=== PATIENT | female | born 1970 | race Caucasian/White ===

== ENCOUNTER 2017-07-01 09:55 | Outpatient (REF) | payer OTHER | END 2017-07-04 | LOC: M SFHCCLAY 09:55 | DX: R19.7 Diarrhea, unspecified (principal) | CPT/HCPCS: 87507 ==

== ENCOUNTER → 2017-07-06 | Outpatient (CLI) | payer OTHER | LOC: M RAD 10:47 | DX: N28.9 Disorder of kidney and ureter, unspecified (principal) | CPT/HCPCS: 76775 ==

== ENCOUNTER 2018-03-15 00:01 | Emergency (ER) | payer OTHER ==
[2018-03-15 01:17] LABS: BEDSIDE GLUCOSE 112 MG/DL (70-105)
[2018-03-15 01:27] LABS: BASO % 0.5 % (0.0-1.0); EOS # 0.3 10^3/uL (0.0-0.50); EOS % 3.4 % (0.0-3.0); HEMATOCRIT 36.1 % (36.0-47.0); HEMOGLOBIN 10.9 g/dl (12.0-15.5); IMMATURE GRANULOCYTE % 0.3 % (0-3.0); LYMPH # 3.1 10^3/uL (1.5-4.5); LYMPH % 39.6 % (24.0-44.0); MEAN CORPUSCULAR HEMOGLOBIN 25.3 pg (27.0-33.0); MEAN CORPUSCULAR HGB CONC 30.2 g/dl (32.0-36.5); MEAN CORPUSCULAR VOLUME 83.8 fl (80.0-96.0); MONO # 0.6 10^3/uL (0.0-0.8); MONO % 7.5 % (0.0-5.0); NEUTROPHILS # 3.8 10^3/uL (1.8-7.7); NEUTROPHILS % 48.7 % (36.0-66.0); PLATELET COUNT, AUTOMATED 318 10^3/uL (150-450); RED BLOOD COUNT 4.31 10^6/uL (4.00-5.40); RED CELL DISTRIBUTION WIDTH 15.9 % (11.5-14.5); WHITE BLOOD COUNT 7.8 10^3/uL (4.0-10.0)
[2018-03-15] MEDS: NS 1,000 ML IV ×4 (01:49→21:09)
[2018-03-15 02:13] LABS: ALBUMIN 3.7 GM/DL (3.2-5.2); ALBUMIN/GLOBULIN RATIO 0.97 (1.00-1.93); ALKALINE PHOSPHATASE 61 U/L (45-117); ALT/SGPT 23 U/L (12-78); ANION GAP 10 MEQ/L (8-16); AST/SGOT 24 U/L (7-37); BILIRUBIN,DIRECT < 0.1 MG/DL (0.0-0.2); BILIRUBIN,TOTAL 0.2 MG/DL (0.2-1.0); BLOOD UREA NITROGEN 18 MG/DL (7-18); CALCIUM LEVEL 8.5 MG/DL (8.5-10.1); CARBON DIOXIDE LEVEL 27 MEQ/L (21-32); CHLORIDE LEVEL 102 MEQ/L (98-107); CPK CREATINE PHOSPHOKINASE 161 U/L (26-192); CREATININE FOR GFR 0.97 MG/DL (0.55-1.30); ETHYL ALCOHOL (ETHANOL) 0.126 % (0.000-0.010); GLOMERULAR FILTRATION RATE > 60.0 (>51); GLUCOSE, FASTING 114 MG/DL (70-100); POTASSIUM SERUM 3.9 MEQ/L (3.5-5.1); SALICYLATE LEVEL < 1.7 MG/DL (5.0-30.0); SODIUM LEVEL 139 MEQ/L (136-145); TOTAL PROTEIN 7.5 GM/DL (6.4-8.2)
[2018-03-15 02:14] LABS: ACETAMINOPHEN LEVEL < 2.0 UG/ML (10.0-30.0)
[2018-03-15] MEDS: ONDANSETRON 4MG/2ML VIAL (J2405) IV (04:15)
[2018-03-15 05:16] LABS: AMPHETAMINES LEVEL URINE NEGATIVE (NEGATIVE); BARBITURATES URINE NEGATIVE (NEGATIVE); BENZODIAZEPINES URINE NEGATIVE (NEGATIVE); CANNABINOIDS URINE NEGATIVE (NEGATIVE); COCAINE METABOLITE URINE NEGATIVE (NEGATIVE); METHADONE URINE NEGATIVE (NEGATIVE); OPIATES URINE NEGATIVE (NEGATIVE); PHENCYCLIDINE URINE NEGATIVE (NEGATIVE)
[2018-03-15] MEDS: ONDANSETRON 4 MG TAB (S0181) PO (09:31)
[2018-03-15] MEDS: ATORVASTATIN 20 MG TAB PO (09:31)
[2018-03-15] MEDS: LEVOTHYROXINE 25MCG TABLET (0.025MG) PO (09:31)
[2018-03-15] MEDS: GABAPENTIN 100 MG CAP PO (09:32)
[2018-03-15] MEDS: LISINOPRIL 20 MG TAB PO (09:32)
[2018-03-15] MEDS: FAMOTIDINE 20 MG TAB PO (09:33)
[2018-03-15] MEDS: VANCOMYCIN ORAL SOL 250MG/5ML ORAL SYRINGE PO (11:14)
[2018-03-15] MEDS: BENZONATATE 100 MG CAP PO (11:44)
[2018-03-15] MEDS: NORCO, ANEXSIA 5/325MG TABLET (HYDROcodone/ACETAMINOPHEN) PO (11:45)
[2018-03-16] MEDS: NORCO, ANEXSIA 5/325MG TABLET (HYDROcodone/ACETAMINOPHEN) PO (01:00)
[2018-03-16] MEDS: NS 1,000 ML IV ×2 (03:49→10:28)
[2018-03-16] MEDS: LEVOTHYROXINE 25MCG TABLET (0.025MG) PO (07:45)
== END 2018-03-16 13:04 | disposition home or self-care (01) ==
LOC: M ED 03-16 13:04
DX: F33.9 Major depressive disorder, recurrent, unspecified (principal); I10 Essential (primary) hypertension; J44.9 Chronic obstructive pulmonary disease, unspecified; E78.9 Disorder of lipoprotein metabolism, unspecified; E66.9 Obesity, unspecified; Z79.899 Other long term (current) drug therapy; Z79.890 Hormone replacement therapy; Z79.51 Long term (current) use of inhaled steroids; Z91.030 Bee allergy status; Z87.891 Personal history of nicotine dependence
CPT/HCPCS: J2405

== ENCOUNTER → 2018-04-10 | Outpatient (REF) | payer OTHER ==
[2018-04-10 12:28] LABS: CHOLESTEROL LEVEL 221 MG/DL (<200); HDL CHOLESTEROL 50 MG/DL (>40); LDL CHOLESTEROL 120 MG/DL (<100); NON-HDL-C 171 MG/DL; TRIGLYCERIDES LEVEL 255 MG/DL (<150)
[2018-04-10 12:29] LABS: ESTIMATED AVERAGE GLUCOSE 123 MG/DL (60-110); HEMOGLOBIN A1c 5.9 %
[2018-04-12 15:03] LABS: VITAMIN D 1,25 DIHYDROXY 45.9 pg/mL (19.9-79.3)
== END ==
LOC: M SFHCCLAY 08:31
DX: R73.01 Impaired fasting glucose (principal); E78.5 Hyperlipidemia, unspecified; E03.9 Hypothyroidism, unspecified; E55.9 Vitamin D deficiency, unspecified
CPT/HCPCS: 84443

== ENCOUNTER → 2018-04-12 | Outpatient (REF) | payer OTHER | LOC: M SFHCCLAY 04-13 11:40 | DX: A04.72 Enterocolitis due to Clostridium difficile, not specified as recurrent (principal) | CPT/HCPCS: 87507 ==

== ENCOUNTER → 2018-05-01 | Outpatient (REF) | payer OTHER ==
[2018-05-01 16:37] LABS: BASO % 0.5 % (0.0-1.0); EOS # 0.2 10^3/uL (0.0-0.50); EOS % 2.5 % (0.0-3.0); HEMOGLOBIN 10.7 g/dl (12.0-15.5); IMMATURE GRANULOCYTE % 0.3 % (0-3.0); LYMPH # 2.4 10^3/uL (1.5-4.5); LYMPH % 30.3 % (24.0-44.0); MEAN CORPUSCULAR HEMOGLOBIN 24.7 pg (27.0-33.0); MEAN CORPUSCULAR HGB CONC 28.9 g/dl (32.0-36.5); MEAN CORPUSCULAR VOLUME 85.5 fl (80.0-96.0); MONO # 0.7 10^3/uL (0.0-0.8); MONO % 8.4 % (0.0-5.0); NEUTROPHILS # 4.7 10^3/uL (1.8-7.7); PLATELET COUNT, AUTOMATED 331 10^3/uL (150-450); RED BLOOD COUNT 4.33 10^6/uL (4.00-5.40); RED CELL DISTRIBUTION WIDTH 16.4 % (11.5-14.5)
[2018-05-01 16:50] LABS: APPEARANCE, URINE CLOUDY (CLEAR); BACTERIA, URINE AUTO NEGATIVE (NEGATIVE); BILIRUBIN, URINE AUTO NEGATIVE (NEGATIVE); BLOOD, URINE BLOOD 1+ (NEGATIVE); COLOR, URINE AMBER (YELLOW); GLUCOSE, URINE (UA) AUTO NEGATIVE (NEGATIVE); KETONE, URINE AUTO NEGATIVE (NEGATIVE); LEUKOCYTE ESTERASE, URINE AUTO NEGATIVE (NEGATIVE); MUCUS, URINE SMALL (NEGATIVE); NITRITE, URINE AUTO NEGATIVE (NEGATIVE); PROTEIN, URINE AUTO 1+ mg/dL (NEGATIVE); RBC, URINE AUTO 9 /HPF (0-3); SQUAMOUS EPITHELIAL CELL UR AU 23 /HPF (0-6); WBC, URINE AUTO 2 /HPF (0-3)
[2018-05-01 16:53] LABS: ALBUMIN 3.7 GM/DL (3.2-5.2); ALBUMIN/GLOBULIN RATIO 1.16 (1.00-1.93); ALKALINE PHOSPHATASE 59 U/L (45-117); ALT/SGPT 22 U/L (12-78); ANION GAP 7 MEQ/L (8-16); AST/SGOT 21 U/L (7-37); BILIRUBIN,TOTAL 0.4 MG/DL (0.2-1.0); BLOOD UREA NITROGEN 11 MG/DL (7-18); C REACTIVE PROTEIN QUANTITATIV < 0.30 MG/DL (0.00-0.30); CALCIUM LEVEL 9.1 MG/DL (8.5-10.1); CARBON DIOXIDE LEVEL 31 MEQ/L (21-32); CHLORIDE LEVEL 104 MEQ/L (98-107); CREATININE FOR GFR 0.76 MG/DL (0.55-1.30); GLOMERULAR FILTRATION RATE > 60.0 (>51); GLUCOSE, FASTING 99 MG/DL (70-100); IMMUNOGLOBULIN G 811 MG/DL (681-1648); IMMUNOGLOBULIN M 130 MG/DL (40-230); POTASSIUM SERUM 4.1 MEQ/L (3.5-5.1); SODIUM LEVEL 142 MEQ/L (136-145); TOTAL PROTEIN 6.9 GM/DL (6.4-8.2)
[2018-05-01 17:33] LABS: HIV 1&2 SCREEN CENTAUR NEGATIVE (NEGATIVE)
== END ==
LOC: M SFHCPLAZ 12:47
DX: A04.72 Enterocolitis due to Clostridium difficile, not specified as recurrent (principal); R31.0 Gross hematuria

== ENCOUNTER 2018-06-12 11:56 | Day surgery (SDC) | payer OTHER ==
[~2018-06-12] VITALS: Ht 160 cm; Wt 140.6 kg
[~2018-06-12 11:56] MED LIST: ADV250INH INH; ALBU17IN INH; ANOR1AER PO; ASPI81TA85 PO; ATOR40TA75 PO; BENZ-18 PO; BENZ200C70 PO; BREO1INH3 IN; FECAL MICROBIOTA PREPARATION 250 ML BTL (J3590) XX ONE; GABA-1171 PO; INCR1INH INH; LEVO25TA34 PO; LIDO2SO SSP; LIDOCAINE 2% INJ 100 MG/5 ML SDV (FOR ANES.) As Ordered ONE; LISI-538 PO; LISI10TA4 PO; METH1TAB40 PO; MULTCAP PO; NICO14DI20 TD; NYST10OI TOP; ONDA4TAB5 PO; ONDA8TAB7 PO; OXYC1TAB23 PO; PRED50TA PO; PROPOFOL 200 MG/20 ML VIAL As Ordered ONE; PROZ20CA11 PO; RANI150T PO; ROBA500T PO; TRAM50TA2 PO; TRAZO50TA PO; ULTR50TA8 PO; VANC125C2 PO; VENTAER INH
--- NOTE | 2018-06-12 13:06 | ROOR ---
Patient Name: Tamiko Brown Procedure Date: 06/12/2018 12:44 PM Date of : 1970 Age: 48 Room: [facility] Gender: Female Note Status: Finalized Procedure: Total Colonoscopy to the Cecum + Fecal Microbiota Transplant (Bacteriotherapy) Indications: Colon cancer screening in patient at increased risk: Colorectal cancer in sister, Incidental - Fecal transplant for treatment of recurrent Clostridium difficile diarrhea Providers: Rashi Norton MD Referring MD: GUADALUPE DIANA DO Requesting Provider: Medicines: Monitored Anesthesia Care Complications: No immediate complications. Procedure: Pre-Anesthesia Assessment: - The heart rate, respiratory rate, oxygen saturations, blood pressure, adequacy of pulmonary ventilation, and response to care were monitored throughout the procedure. The Colonoscope was introduced through the anus and advanced to the cecum, identified by appendiceal orifice and ileocecal valve. The colonoscopy was performed without difficulty. The patient tolerated the procedure well. The quality of the bowel preparation was excellent. Findings: The perianal and digital rectal examinations were normal. Non-bleeding internal hemorrhoids were found during retroflexion. The hemorrhoids were small and Grade I (internal hemorrhoids that do not prolapse). Multiple small and large-mouthed diverticula were found in the recto-sigmoid colon, sigmoid colon and descending colon. Fecal Microbiota Transplant (Bacteriotherapy): Donor stool was prepared as per protocol. Approximately 250 mL of the emulsified donor stool was instilled in the cecum. A detailed colonoscopic exam could not be performed upon scope withdrawal secondary to limited visibility from the instilled stool. The exam was otherwise without abnormality. Impression: - Non-bleeding internal hemorrhoids. - Diverticulosis in the recto-sigmoid colon, in the sigmoid colon and in the descending colon. - The examination was otherwise normal. - Fecal Microbiota Transplant (Bacteriotherapy) performed in the cecum. - No specimens collected. - The exam was otherwise normal to the cecum. Recommendation: - Patient has a contact number available for emergencies. The signs and symptoms of potential delayed complications were discussed with the patient. Return to normal activities tomorrow. Written discharge instructions were provided to the patient. - High fiber diet. - Discharge patient to home. - Continue present medications. - Repeat colonoscopy in 5 years for screening purposes. - Return to referring physician. - The findings and recommendations were discussed with the patient's family. Rashi Norton MD Rashi Norton MD 06/12/2018 1:05:55 PM This report has been signed electronically. Number of Addenda: 0 Note Initiated On: 06/12/2018 12:44 PM Estimated Blood Loss: Estimated blood loss: none.
[2018-06-12] MEDS ORDERED: PROPOFOL 200 MG/20 ML VIAL As Ordered ONE (13:11)
[2018-06-12 13:39] VITALS: BP 147/78
== END 2018-06-12 16:15 | disposition home or self-care (01) ==
LOC: M OPP 11:56
PROVIDERS: ATTEND Internal Medicine Gastroenterology
DX: K64.0 First degree hemorrhoids (principal); Z12.11 Encounter for screening for malignant neoplasm of colon; Z80.0 Family history of malignant neoplasm of digestive organs; A04.72 Enterocolitis due to Clostridium difficile, not specified as recurrent; K57.30 Diverticulosis of large intestine without perforation or abscess without bleeding

== ENCOUNTER → 2018-07-03 | Outpatient (REF) | payer OTHER ==
[~2018-07-03] MED LIST changes: -FECAL MICROBIOTA PREPARATION 250 ML BTL (J3590) XX ONE; -LIDOCAINE 2% INJ 100 MG/5 ML SDV (FOR ANES.) As Ordered ONE; -PROPOFOL 200 MG/20 ML VIAL As Ordered ONE
[2018-07-03 13:16] LABS: ALBUMIN 3.8 GM/DL (3.2-5.2); ALT/SGPT 20 U/L (12-78); BILIRUBIN,TOTAL 0.7 MG/DL (0.2-1.0); BLOOD UREA NITROGEN 11 MG/DL (7-18); CALCIUM LEVEL 8.9 MG/DL (8.5-10.1); CARBON DIOXIDE LEVEL 28 MEQ/L (21-32); CHLORIDE LEVEL 104 MEQ/L (98-107); CREATININE FOR GFR 0.98 MG/DL (0.55-1.30); GLOMERULAR FILTRATION RATE > 60.0 (>51); GLUCOSE, FASTING 98 MG/DL (70-100); POTASSIUM SERUM 4.1 MEQ/L (3.5-5.1); SODIUM LEVEL 141 MEQ/L (136-145); TOTAL PROTEIN 7.3 GM/DL (6.4-8.2)
[2018-07-03 13:17] LABS: BASO % 0.6 % (0.0-1.0); EOS # 0.1 10^3/uL (0.0-0.50); EOS % 1.4 % (0.0-3.0); HEMATOCRIT 38.3 % (36.0-47.0); HEMOGLOBIN 11.3 g/dl (12.0-15.5); LYMPH # 2.1 10^3/uL (1.5-4.5); LYMPH % 28.9 % (24.0-44.0); MEAN CORPUSCULAR HEMOGLOBIN 24.5 pg (27.0-33.0); MEAN CORPUSCULAR HGB CONC 29.5 g/dl (32.0-36.5); MEAN CORPUSCULAR VOLUME 82.9 fl (80.0-96.0); MONO # 0.6 10^3/uL (0.0-0.8); MONO % 7.7 % (0.0-5.0); NEUTROPHILS # 4.4 10^3/uL (1.8-7.7); NEUTROPHILS % 61.3 % (36.0-66.0); PLATELET COUNT, AUTOMATED 308 10^3/uL (150-450); RED BLOOD COUNT 4.62 10^6/uL (4.00-5.40); WHITE BLOOD COUNT 7.2 10^3/uL (4.0-10.0)
== END ==
LOC: M SFHCPLAZ 11:42
PROVIDERS: ATTEND Internal Medicine Infectious Disease
DX: A04.72 Enterocolitis due to Clostridium difficile, not specified as recurrent (principal)

== ENCOUNTER 2019-04-16 15:42 | Emergency (ER) | payer OTHER ==
[~2019-04-16] VITALS: Ht 160 cm; Wt 126.2 kg
[~2019-04-16 15:42] MED LIST changes: +TRAZ1TAB10 PO; -TRAZO50TA PO; -VANC125C2 PO; +VANC125C3 PO
[2019-04-16 15:43] VITALS: BP 145/86
[2019-04-16] MEDS ORDERED: ONDANSETRON 4MG/2ML VIAL (J2405) IV ONE (16:45)
[2019-04-16] MEDS ORDERED: KETOROLAC 30 MG/ML VIAL (J1885) IV ONE (16:45)
[2019-04-16] MEDS ORDERED: ALBU83IN NEB (17:23)
[2019-04-16 17:28] LABS: BASO # 0.1 10^3/uL (0.0-0.2); BASO % 0.6 % (0.0-1.0); EOS # 0.1 10^3/uL (0.0-0.5); EOS % 1.1 % (0.0-3.0); HEMATOCRIT 42.6 % (36.0-47.0); HEMOGLOBIN 13.1 g/dl (12.0-15.5); LYMPH # 1.7 10^3/uL (1.5-5.0); LYMPH % 18.5 % (24.0-44.0); MEAN CORPUSCULAR HEMOGLOBIN 28.7 pg (27.0-33.0); MEAN CORPUSCULAR HGB CONC 30.8 g/dl (32.0-36.5); MEAN CORPUSCULAR VOLUME 93.2 fl (80.0-96.0); MONO # 0.6 10^3/uL (0.0-0.8); MONO % 6.5 % (0.0-5.0); NEUTROPHILS # 6.5 10^3/uL (1.5-8.5); NEUTROPHILS % 73.1 % (36.0-66.0); PLATELET COUNT, AUTOMATED 276 10^3/uL (150-450); RED BLOOD COUNT 4.57 10^6/uL (4.00-5.40)
[2019-04-16 17:42] LABS: ALBUMIN 4.1 GM/DL (3.2-5.2); BILIRUBIN,DIRECT 0.2 MG/DL (0.0-0.2); CALCIUM LEVEL 9.5 MG/DL (8.5-10.1); CREATININE FOR GFR 1.05 MG/DL (0.55-1.30); GLOMERULAR FILTRATION RATE 58.8 (>51); POTASSIUM SERUM 4.1 MEQ/L (3.5-5.1)
--- NOTE | 2019-04-16 17:56 | REPVR ---
PROCEDURE INFORMATION: Exam: CT Abdomen And Pelvis Without Contrast Exam date and time: 04/16/2019 5:12 PM Clinical history: 49 years old, female; Abdominal pain; Flank; Left; Additional info: Left flank pain/dysuria TECHNIQUE: Imaging protocol: Computed tomography of the abdomen and pelvis without contrast. Radiation optimization: All CT scans at this facility use at least one of these dose optimization techniques: automated exposure control; mA and/or kV adjustment per patient size (includes targeted exams where dose is matched to clinical indication); or iterative reconstruction. COMPARISON: CT ABD/PELVIS W/ CONTRAST - OUTSIDE PRIOR 05/30/2017 10:17 PM FINDINGS: Liver: Unremarkable. Gallbladder and bile ducts: Unremarkable. No ductal dilation. Pancreas: Unremarkable. No ductal dilation. Spleen: Unremarkable. Adrenals: Unremarkable. Kidneys and ureters: Punctate nonobstructive calculus in the inferior left kidney. No hydronephrosis. Stomach and bowel: Scattered colonic diverticulosis without evidence of diverticulitis. Small bowel loops are unremarkable. Appendix: No evidence of appendicitis. Intraperitoneal space: No pneumoperitoneum. No significant fluid collection. Vasculature: Unremarkable. Lymph nodes: No enlarged lymph nodes. Bladder: Unremarkable. Reproductive: Unremarkable as visualized. Bones/joints: Multilevel degenerative changes of the visualized spine. No acute osseous lesion or fracture. Soft tissues: Unremarkable. IMPRESSION: 1. Punctate nonobstructive calculus in the inferior left kidney. No hydronephrosis. 2. Scattered colonic diverticulosis without evidence of diverticulitis. Electronically signed by: Darrell Up On 04/16/2019 17:56:08 PM
[2019-04-16] MEDS ORDERED: KETO10TAB PO (18:07)
[2019-04-16] MEDS ORDERED: FLOM0.4C39 PO (18:07)
[2019-04-16] MEDS ORDERED: NORCO, ANEXSIA 5/325MG TABLET (HYDROcodone/ACETAMINOPHEN) PO ONE (18:15)
== END 2019-04-16 18:30 | disposition home or self-care (01) ==
LOC: M ED 15:42
DX: N20.0 Calculus of kidney (principal); R31.29 Other microscopic hematuria; K57.90 Diverticulosis of intestine, part unspecified, without perforation or abscess without bleeding; Z87.891 Personal history of nicotine dependence; I10 Essential (primary) hypertension; E78.5 Hyperlipidemia, unspecified; J45.909 Unspecified asthma, uncomplicated; G47.33 Obstructive sleep apnea (adult) (pediatric); R51 Headache; E03.9 Hypothyroidism, unspecified; Z91.030 Bee allergy status; Z79.2 Long term (current) use of antibiotics; Z79.899 Other long term (current) drug therapy
CPT/HCPCS: 74176; 80048; 80076; 81001; 83690; 85025; 87086; 96374; 96375; 99284; J1885; J2405

== ENCOUNTER 2019-06-24 17:39 | Emergency (ER) | payer OTHER ==
[~2019-06-24] VITALS: Ht 160 cm; Wt 131.4 kg
[~2019-06-24 17:39] MED LIST changes: +ALBU83IN NEB; +FLOM0.4C39 PO; +KETO10TAB PO
[2019-06-24 18:07] LABS: HEMATOCRIT 38.3 % (36.0-47.0); HEMOGLOBIN 11.9 g/dl (12.0-15.5); MEAN CORPUSCULAR HEMOGLOBIN 28.6 pg (27.0-33.0); MEAN CORPUSCULAR HGB CONC 31.1 g/dl (32.0-36.5); MEAN CORPUSCULAR VOLUME 92.1 fl (80.0-96.0); PLATELET COUNT, AUTOMATED 343 10^3/uL (150-450); RED BLOOD COUNT 4.16 10^6/uL (4.00-5.40); WHITE BLOOD COUNT 6.8 10^3/uL (4.0-10.0)
[2019-06-24 18:30] LABS: AMPHETAMINES LEVEL URINE NEGATIVE (NEGATIVE); BARBITURATES URINE NEGATIVE (NEGATIVE); BENZODIAZEPINES URINE NEGATIVE (NEGATIVE); CANNABINOIDS URINE NEGATIVE (NEGATIVE); COCAINE METABOLITE URINE NEGATIVE (NEGATIVE); METHADONE URINE NEGATIVE (NEGATIVE); OPIATES URINE NEGATIVE (NEGATIVE); PHENCYCLIDINE URINE NEGATIVE (NEGATIVE)
[2019-06-24 18:50] LABS: ACETAMINOPHEN LEVEL < 2.0 UG/ML (10.0-30.0); ALBUMIN 3.6 GM/DL (3.2-5.2); ALT/SGPT 29 U/L (12-78); BILIRUBIN,DIRECT < 0.1 MG/DL (0.0-0.2); BILIRUBIN,TOTAL 0.3 MG/DL (0.2-1.0); BLOOD UREA NITROGEN 11 MG/DL (7-18); CALCIUM LEVEL 8.9 MG/DL (8.5-10.1); CARBON DIOXIDE LEVEL 25 MEQ/L (21-32); CHLORIDE LEVEL 108 MEQ/L (98-107); CREATININE FOR GFR 1.25 MG/DL (0.55-1.30); GLOMERULAR FILTRATION RATE 48.1 (>51); GLUCOSE, FASTING 92 MG/DL (70-100); POTASSIUM SERUM 4.4 MEQ/L (3.5-5.1); SALICYLATE LEVEL < 1.7 MG/DL (5.0-30.0); SODIUM LEVEL 142 MEQ/L (136-145); TOTAL PROTEIN 7.4 GM/DL (6.4-8.2)
[2019-06-25 06:32] VITALS: BP 189/106
== END 2019-06-25 06:34 | disposition home or self-care (01) ==
LOC: M ED 17:39
DX: F10.129 Alcohol abuse with intoxication, unspecified (principal); F41.9 Anxiety disorder, unspecified; I10 Essential (primary) hypertension; I25.10 Atherosclerotic heart disease of native coronary artery without angina pectoris; K21.9 Gastro-esophageal reflux disease without esophagitis; J44.9 Chronic obstructive pulmonary disease, unspecified; F17.210 Nicotine dependence, cigarettes, uncomplicated; Z91.048 Other nonmedicinal substance allergy status; Z91.030 Bee allergy status; Z79.51 Long term (current) use of inhaled steroids; Z79.83 Long term (current) use of bisphosphonates; Z79.899 Other long term (current) drug therapy
CPT/HCPCS: 36415; 80048; 80076; 80307; 84443; 85027; 99284; G0480

== ENCOUNTER 2019-07-19 13:57 | Emergency (ER) | payer OTHER ==
[~2019-07-19] VITALS: Ht 160 cm; Wt 126.5 kg
[~2019-07-19 13:57] MED LIST changes: +ONDA-83 PO; -ONDA4TAB5 PO; +ONDA8TAB10 PO; -ONDA8TAB7 PO
[2019-07-19] MEDS ORDERED: NYST1POW9 TOP (14:25)
[2019-07-19] MEDS ORDERED: KETOROLAC 30 MG/ML VIAL (J1885) IV ONE (15:00)
[2019-07-19] MEDS ORDERED: LORazepam 2 MG/ML VIAL (J2060) IV ONE (15:00)
[2019-07-19 15:28] LABS: HEMATOCRIT 35.8 % (36.0-47.0); HEMOGLOBIN 10.6 g/dl (12.0-15.5); MEAN CORPUSCULAR HEMOGLOBIN 27.9 pg (27.0-33.0); MEAN CORPUSCULAR HGB CONC 29.6 g/dl (32.0-36.5); MEAN CORPUSCULAR VOLUME 94.2 fl (80.0-96.0); PLATELET COUNT, AUTOMATED 281 10^3/uL (150-450); WHITE BLOOD COUNT 9.1 10^3/uL (4.0-10.0)
[2019-07-19 15:50] LABS: BLOOD UREA NITROGEN 14 MG/DL (7-18); CALCIUM LEVEL 8.7 MG/DL (8.5-10.1); CARBON DIOXIDE LEVEL 29 MEQ/L (21-32); CHLORIDE LEVEL 106 MEQ/L (98-107); CK-MB VALUE MASS < 1.0 NG/ML (<3.6); CPK CREATINE PHOSPHOKINASE 120 U/L (26-192); CREATININE FOR GFR 0.98 MG/DL (0.55-1.30); GLOMERULAR FILTRATION RATE > 60.0 (>51); GLUCOSE, FASTING 101 MG/DL (70-100); MB/CK RELATIVE INDEX 0.83 (< OR =4); POTASSIUM SERUM 4.2 MEQ/L (3.5-5.1); SODIUM LEVEL 141 MEQ/L (136-145); TROPONIN I < 0.02 NG/ML (< 0.10)
[2019-07-19] MEDS ORDERED: CYCL5TAB PO (16:12)
[2019-07-19] MEDS ORDERED: NAPR-837 PO (16:12)
[2019-07-19 16:16] VITALS: BP 117/68
--- NOTE | 2019-07-20 20:20 | ECGEPIP ---
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
== END 2019-07-19 16:24 | disposition home or self-care (01) ==
LOC: M ED 13:57 → EDBD 13:57 → M ED 16:24
DX: M62.830 Muscle spasm of back (principal); R94.31 Abnormal electrocardiogram [ECG] [EKG]; M54.2 Cervicalgia; J44.9 Chronic obstructive pulmonary disease, unspecified; I25.10 Atherosclerotic heart disease of native coronary artery without angina pectoris; E78.5 Hyperlipidemia, unspecified; I10 Essential (primary) hypertension; F10.10 Alcohol abuse, uncomplicated; Z95.5 Presence of coronary angioplasty implant and graft; Z86.19 Personal history of other infectious and parasitic diseases; F17.210 Nicotine dependence, cigarettes, uncomplicated; Z91.048 Other nonmedicinal substance allergy status; Z91.030 Bee allergy status; Z79.1 Long term (current) use of non-steroidal anti-inflammatories (NSAID); Z79.51 Long term (current) use of inhaled steroids; Z79.83 Long term (current) use of bisphosphonates; Z79.899 Other long term (current) drug therapy
CPT/HCPCS: 80047; 80048; 82550; 82553; 85027; 93005; 96374; 96375; 99284; J1885; J2060

== ENCOUNTER → 2019-07-27 | Outpatient (REF) | payer OTHER ==
[~2019-07-27] MED LIST changes: +CYCL5TAB PO; +NAPR-837 PO; +NYST1POW9 TOP
[2019-07-27 17:19] LABS: ALBUMIN 4.1 GM/DL (3.2-5.2); ALT/SGPT 19 U/L (12-78); BILIRUBIN,TOTAL 0.6 MG/DL (0.2-1.0); BLOOD UREA NITROGEN 8 MG/DL (7-18); CARBON DIOXIDE LEVEL 31 MEQ/L (21-32); CHLORIDE LEVEL 101 MEQ/L (98-107); CHOLESTEROL LEVEL 155 MG/DL (<200); CHOLESTEROL RISK RATIO 3.039 (<5); CREATININE FOR GFR 0.85 MG/DL (0.55-1.30); GLOMERULAR FILTRATION RATE > 60.0 (>51); GLUCOSE, FASTING 94 MG/DL (70-100); HDL CHOLESTEROL 51 MG/DL (>40); LDL CHOLESTEROL 64 MG/DL (<100); NON-HDL-C 104 MG/DL; POTASSIUM SERUM 4.2 MEQ/L (3.5-5.1); SODIUM LEVEL 139 MEQ/L (136-145); TOTAL PROTEIN 7.5 GM/DL (6.4-8.2); TRIGLYCERIDES LEVEL 202 MG/DL (<150)
[2019-07-27 19:24] LABS: HEMOGLOBIN A1c 5.7 %
== END ==
LOC: M SFHCCLAY 13:21
PROVIDERS: ATTEND Family Medicine
DX: I10 Essential (primary) hypertension (principal); E55.9 Vitamin D deficiency, unspecified; R73.01 Impaired fasting glucose; E03.9 Hypothyroidism, unspecified; E78.5 Hyperlipidemia, unspecified

== ENCOUNTER → 2019-07-27 | Outpatient (CLI) | payer OTHER ==
--- NOTE | 2019-07-27 14:21 | REP ---
Cervical spine age views: Vertebral body heights and alignment are normal C1-C6. See 71 are obscured by the shoulders. There is degenerative disc disease at C 05/06 and 06/07. The prevertebral soft tissues are normal. The facets are normally aligned. There is mild facet osteoarthritis. The odontoid view is unremarkable. There is mild foraminal encroachment from uncinate spurring on the left at C 05/06 and C6-7. The right foramen are suboptimally demonstrated. Impression: C5-6 and C6-7 degenerative disc disease. Mild foraminal encroachment on the left at C5-6 and C6-7. The right foramen are suboptimally demonstrated Electronically Signed by Nhan Betancur MD 07/27/2019 02:12 P
== END ==
LOC: M CLY 13:33
PROVIDERS: ATTEND Family Medicine
DX: M50.322 Other cervical disc degeneration at C5-C6 level (principal); M50.323 Other cervical disc degeneration at C6-C7 level; M48.02 Spinal stenosis, cervical region; M62.838 Other muscle spasm

== ENCOUNTER → 2020-05-27 | Outpatient (REF) | payer OTHER ==
[~2020-05-27] MED LIST changes: -ASPI81TA85 PO; +ASPI81TA86 PO
[2020-05-27 11:57] LABS: BASO # 0.1 10^3/uL (0.0-0.2); BASO % 0.7 % (0.0-1.0); EOS # 0.2 10^3/uL (0.0-0.5); EOS % 2.7 % (0.0-3.0); HEMATOCRIT 39.6 % (36.0-47.0); HEMOGLOBIN 12.2 g/dl (12.0-15.5); LYMPH # 1.8 10^3/uL (1.5-5.0); LYMPH % 26.8 % (24.0-44.0); MEAN CORPUSCULAR HGB CONC 30.8 g/dl (32.0-36.5); MEAN CORPUSCULAR VOLUME 97.3 fl (80.0-96.0); MONO # 0.5 10^3/uL (0.0-0.8); MONO % 7.3 % (0.0-5.0); NEUTROPHILS # 4.1 10^3/uL (1.5-8.5); NEUTROPHILS % 62.2 % (36.0-66.0); PLATELET COUNT, AUTOMATED 284 10^3/uL (150-450); RED BLOOD COUNT 4.07 10^6/uL (4.00-5.40); WHITE BLOOD COUNT 6.7 10^3/uL (4.0-10.0)
[2020-05-27 12:12] LABS: HEMOGLOBIN A1c 5.4 %
[2020-05-27 12:21] LABS: ALBUMIN 3.8 GM/DL (3.2-5.2); ALT/SGPT 17 U/L (12-78); BILIRUBIN,TOTAL 0.8 MG/DL (0.2-1.0); BLOOD UREA NITROGEN 17 MG/DL (7-18); CALCIUM LEVEL 9.2 MG/DL (8.5-10.1); CARBON DIOXIDE LEVEL 31 MEQ/L (21-32); CHLORIDE LEVEL 103 MEQ/L (98-107); CHOLESTEROL LEVEL 170 MG/DL (<200); CHOLESTEROL RISK RATIO 2.786 (<5); CREATININE FOR GFR 0.72 MG/DL (0.55-1.30); GLOMERULAR FILTRATION RATE > 60.0 (>51); GLUCOSE, FASTING 102 MG/DL (70-100); HDL CHOLESTEROL 61 MG/DL (>40); LDL CHOLESTEROL 51 MG/DL (<100); NON-HDL-C 109 MG/DL; POTASSIUM SERUM 3.8 MEQ/L (3.5-5.1); SODIUM LEVEL 138 MEQ/L (136-145); TOTAL PROTEIN 7.2 GM/DL (6.4-8.2); TRIGLYCERIDES LEVEL 290 MG/DL (<150)
== END ==
LOC: M SFHCCLAY 09:09
PROVIDERS: ATTEND Family Medicine
DX: E78.5 Hyperlipidemia, unspecified (principal); I10 Essential (primary) hypertension; R73.01 Impaired fasting glucose; E03.9 Hypothyroidism, unspecified; E55.9 Vitamin D deficiency, unspecified

== ENCOUNTER → 2020-08-26 | Outpatient (REF) | payer OTHER ==
[~2020-08-26] MED LIST changes: -LISI-538 PO; +LISI10TA22 PO; -LISI10TA4 PO; +LISI20TA33 PO; +METH-1164 PO; -METH1TAB40 PO
[2020-08-26 12:42] LABS: ALBUMIN 3.9 GM/DL (3.2-5.2); BILIRUBIN,TOTAL 0.4 MG/DL (0.2-1.0); CALCIUM LEVEL 10.5 MG/DL (8.5-10.1); CREATININE FOR GFR 1.09 MG/DL (0.55-1.30); GLOMERULAR FILTRATION RATE 56.1 (>51); TOTAL PROTEIN 7.7 GM/DL (6.4-8.2)
== END ==
LOC: M SFHCCLAY 09:42
PROVIDERS: ATTEND Family Medicine
DX: I10 Essential (primary) hypertension (principal)

== ENCOUNTER → 2020-09-24 | Outpatient (CLI) | payer OTHER ==
--- NOTE | 2020-09-24 19:42 | REPVR ---
PROCEDURE INFORMATION: Exam: MR Cervical Spine Without Contrast Exam date and time: 09/24/2020 5:26 PM Age: 50 years old Clinical indication: Radicular pain (radiculopathy); Cervical region; Additional info: Cervical radilulopathy TECHNIQUE: Imaging protocol: Multiplanar magnetic resonance images of the cervical spine without contrast. COMPARISON: CR SPINE CERVICAL COMPL 07/27/2019 1:43 PM FINDINGS: Patient motion. Trace anterolisthesis of C7 on T1. Vertebral body heights are preserved. Multilevel disc desiccation and disc space narrowing. No evidence of discitis/osteomyelitis. No abnormal cord signal or cord expansion. No epidural fluid collection. C2-C3: Left-sided facet joint arthropathy contributes to [id number] left foraminal stenosis. No central canal stenosis. C3-C4: Mild disc osteophyte complex with prominent left-sided facet joint arthropathy. No significant central canal stenosis. There is moderate left foraminal stenosis. C4-C5: No significant central or foraminal stenosis. C5-C6: Vuat-qq-befwofew disc osteophyte complex with bilateral uncinate spurring. There is mild central canal stenosis and moderate to severe bilateral foraminal stenosis. C6-C7: Mild disc osteophyte complex with bilateral uncinate spurring. No significant central canal stenosis. Moderate to severe right and moderate left foraminal stenosis. C7-T1: Mild disc osteophyte complex with facet joint arthropathy greater on the right. No significant central canal stenosis. There is fjfw-[id number] right foraminal stenosis. IMPRESSION: 1. No acute abnormality involving the cervical spine. 2. Degenerative findings as above greatest at C5-C6 where there is mild central canal stenosis and moderate to severe bilateral foraminal stenosis. Electronically signed by: Venkata Diaz On 09/24/2020 19:42:20 PM
== END ==
LOC: M RAD 15:50
PROVIDERS: ATTEND Family Medicine
DX: M50.322 Other cervical disc degeneration at C5-C6 level (principal); M48.02 Spinal stenosis, cervical region

== ENCOUNTER → 2020-11-03 | Outpatient (CLI) | payer SELFPAY | LOC: M LABSMTC 12:22 | PROVIDERS: ATTEND Pediatrics | DX: Z20.822 Contact with and (suspected) exposure to COVID-19 (principal) ==

== ENCOUNTER → 2020-11-27 | Outpatient (REF) | payer OTHER ==
[2020-11-27 16:00] LABS: HEMOGLOBIN A1c 5.6 %
[2020-11-27 16:18] LABS: ALBUMIN 3.7 GM/DL (3.2-5.2); ALT/SGPT 21 U/L (12-78); BILIRUBIN,TOTAL 0.6 MG/DL (0.2-1.0); BLOOD UREA NITROGEN 14 MG/DL (7-18); CALCIUM LEVEL 8.5 MG/DL (8.5-10.1); CARBON DIOXIDE LEVEL 32 MEQ/L (21-32); CHLORIDE LEVEL 104 MEQ/L (98-107); CREATININE FOR GFR 0.75 MG/DL (0.55-1.30); GLOMERULAR FILTRATION RATE > 60.0 (>51); GLUCOSE, FASTING 85 MG/DL (70-100); POTASSIUM SERUM 3.8 MEQ/L (3.5-5.1); SODIUM LEVEL 140 MEQ/L (136-145)
== END ==
LOC: M SFHCCLAY 09:49
PROVIDERS: ATTEND Family Medicine
DX: R73.01 Impaired fasting glucose (principal); I10 Essential (primary) hypertension; E03.9 Hypothyroidism, unspecified

== ENCOUNTER → 2021-06-23 | Outpatient (REF) | payer OTHER ==
[~2021-06-23] MED LIST changes: +ONDA-84 PO; -ONDA8TAB10 PO
[2021-06-23 16:01] LABS: BASO # 0.1 10^3/uL (0.0-0.2); BASO % 0.8 % (0.0-1.0); EOS # 0.3 10^3/uL (0.0-0.5); EOS % 4.8 % (0.0-3.0); HEMATOCRIT 39.3 % (36.0-47.0); HEMOGLOBIN 12.1 g/dl (12.0-15.5); LYMPH # 2.1 10^3/uL (1.5-5.0); LYMPH % 34.7 % (24.0-44.0); MEAN CORPUSCULAR HGB CONC 30.8 g/dl (32.0-36.5); MEAN CORPUSCULAR VOLUME 87.7 fl (80.0-96.0); MONO # 0.5 10^3/uL (0.0-0.8); MONO % 8.9 % (2.0-8.0); NEUTROPHILS % 49.8 % (36.0-66.0); PLATELET COUNT, AUTOMATED 372 10^3/uL (150-450); RED BLOOD COUNT 4.48 10^6/uL (4.00-5.40); WHITE BLOOD COUNT 6.1 10^3/uL (4.0-10.0)
[2021-06-23 16:16] LABS: HEMOGLOBIN A1c 5.6 %
[2021-06-23 16:34] LABS: ALBUMIN 3.7 GM/DL (3.2-5.2); ALT/SGPT 32 U/L (12-78); BILIRUBIN,TOTAL 0.3 MG/DL (0.2-1.0); BLOOD UREA NITROGEN 17 MG/DL (7-18); CALCIUM LEVEL 9.4 MG/DL (8.5-10.1); CARBON DIOXIDE LEVEL 30 MEQ/L (21-32); CHLORIDE LEVEL 105 MEQ/L (98-107); CHOLESTEROL LEVEL 243 MG/DL (<200); CREATININE FOR GFR 0.77 MG/DL (0.55-1.30); GLOMERULAR FILTRATION RATE > 60.0 (>51); GLUCOSE, FASTING 103 MG/DL (70-100); HDL CHOLESTEROL 50 MG/DL (>40); LDL CHOLESTEROL 127 MG/DL (<100); MAGNESIUM LEVEL 1.9 MG/DL (1.8-2.4); NON-HDL-C 193 MG/DL; POTASSIUM SERUM 4.6 MEQ/L (3.5-5.1); SODIUM LEVEL 140 MEQ/L (136-145); TOTAL PROTEIN 7.3 GM/DL (6.4-8.2); TRIGLYCERIDES LEVEL 329 MG/DL (<150)
== END ==
LOC: M SFHCCLAY 10:06
PROVIDERS: ATTEND Family Medicine
DX: E78.5 Hyperlipidemia, unspecified (principal); I10 Essential (primary) hypertension; R73.01 Impaired fasting glucose; K21.9 Gastro-esophageal reflux disease without esophagitis

== ENCOUNTER → 2021-07-08 | Outpatient (REF) | payer OTHER | LOC: M SFHCCLAY 15:45 | PROVIDERS: ATTEND Family Medicine | DX: R19.7 Diarrhea, unspecified (principal) ==

== ENCOUNTER → 2021-09-21 | Outpatient (REF) | payer OTHER ==
[2021-09-21 16:15] LABS: ALBUMIN 4.1 GM/DL (3.2-5.2); ALT/SGPT 24 U/L (12-78); AMYLASE 28 U/L (25-115); BILIRUBIN,TOTAL 0.7 MG/DL (0.2-1.0); BLOOD UREA NITROGEN 13 MG/DL (7-18); CALCIUM LEVEL 9.7 MG/DL (8.5-10.1); CARBON DIOXIDE LEVEL 34 MEQ/L (21-32); CHLORIDE LEVEL 101 MEQ/L (98-107); CREATININE FOR GFR 0.99 MG/DL (0.55-1.30); GLOMERULAR FILTRATION RATE > 60.0 (>51); GLUCOSE, FASTING 113 MG/DL (70-100); LIPASE 134 U/L (73-393); POTASSIUM SERUM 3.3 MEQ/L (3.5-5.1); SODIUM LEVEL 142 MEQ/L (136-145); TOTAL PROTEIN 7.7 GM/DL (6.4-8.2)
[2021-09-23 18:10] LABS: H PYLORI SERUM QUANT IGA <9.0 units (0.0-8.9); H PYLORI SERUM QUANT IGM <9.0 units (0.0-8.9); H PYLORI SERUM QUANT IgG ABY 0.95 (0.00-0.79)
== END ==
LOC: M SFHCCLAY 11:22
PROVIDERS: ATTEND Family Medicine
DX: E03.9 Hypothyroidism, unspecified (principal); R11.0 Nausea; K21.9 Gastro-esophageal reflux disease without esophagitis

== ENCOUNTER → 2021-12-17 | Outpatient (REF) | payer OTHER ==
[~2021-12-17] MED LIST changes: +ALBU2.5V10 NEB; -ALBU83IN NEB
[2021-12-17 16:04] LABS: HEMOGLOBIN A1c 5.3 %
[2021-12-17 16:14] LABS: ALBUMIN 3.3 GM/DL (3.2-5.2); ALT/SGPT 36 U/L (12-78); BILIRUBIN,TOTAL 0.6 MG/DL (0.2-1.0); BLOOD UREA NITROGEN 6 MG/DL (7-18); CALCIUM LEVEL 9.2 MG/DL (8.5-10.1); CARBON DIOXIDE LEVEL 31 MEQ/L (21-32); CHLORIDE LEVEL 107 MEQ/L (98-107); CHOLESTEROL LEVEL 224 MG/DL (<200); CHOLESTEROL RISK RATIO 3.733 (<5); CREATININE FOR GFR 0.78 MG/DL (0.55-1.30); GLOMERULAR FILTRATION RATE > 60.0 (>51); GLUCOSE, FASTING 105 MG/DL (70-100); HDL CHOLESTEROL 60 MG/DL (>40); LDL CHOLESTEROL 108 MG/DL (<100); NON-HDL-C 164 MG/DL; POTASSIUM SERUM 3.6 MEQ/L (3.5-5.1); SODIUM LEVEL 143 MEQ/L (136-145); TOTAL PROTEIN 6.7 GM/DL (6.4-8.2); TRIGLYCERIDES LEVEL 279 MG/DL (<150)
== END ==
LOC: M SFHCCLAY 11:07
PROVIDERS: ATTEND Family Medicine
DX: R73.01 Impaired fasting glucose (principal); E03.9 Hypothyroidism, unspecified; E78.5 Hyperlipidemia, unspecified

== ENCOUNTER 2022-03-10 15:22 | Emergency (ER) | payer OTHER ==
[~2022-03-10] VITALS: Ht 160 cm; Wt 130.8 kg
[2022-03-10] MEDS ORDERED: BUDE10.22 (15:33)
[2022-03-10 15:58] LABS: HEMATOCRIT 41.1 % (36.0-47.0); HEMOGLOBIN 12.7 g/dl (12.0-15.5); MEAN CORPUSCULAR HEMOGLOBIN 27.8 pg (27.0-33.0); MEAN CORPUSCULAR HGB CONC 30.9 g/dl (32.0-36.5); MEAN CORPUSCULAR VOLUME 89.9 fl (80.0-96.0); PLATELET COUNT, AUTOMATED 263 10^3/uL (150-450); RED BLOOD COUNT 4.57 10^6/uL (4.00-5.40); WHITE BLOOD COUNT 6.5 10^3/uL (4.0-10.0)
[2022-03-10] MEDS ORDERED: ONDANSETRON 4MG 2ML VIAL IV ONE (17:20)
[2022-03-10] MEDS ORDERED: TIZA10TA (17:25)
[2022-03-10] MEDS ORDERED: CARV3.12 (17:25)
[2022-03-10] MEDS ORDERED: OMEP40CA5 (17:25)
[2022-03-10] MEDS ORDERED: GABA-1171 (17:25)
[2022-03-10] MEDS ORDERED: TRAM50TA2 (17:25)
[2022-03-10] MEDS ORDERED: KETOROLAC 30 MG/ML 1ML VIAL IV ONE (18:00)
[2022-03-10 18:11] LABS: INR 0.92; PROTHROMBIN TIME 12.8 SECONDS (12.7-14.5)
[2022-03-10 18:35] LABS: ALBUMIN 3.6 GM/DL (3.2-5.2); ALT/SGPT 26 U/L (12-78); BILIRUBIN,DIRECT < 0.1 MG/DL (0.0-0.2); BILIRUBIN,TOTAL 0.2 MG/DL (0.2-1.0); TOTAL PROTEIN 7.1 GM/DL (6.4-8.2)
[2022-03-10] MEDS ORDERED: ISOVUE-370 76% 100ML VIAL As Ordered ONE (19:01)
[2022-03-10] MEDS ORDERED: HYDR-3713 PO (20:07)
[2022-03-10 20:13] VITALS: BP 156/76
[2022-03-10] MEDS ORDERED: NORCO 5/325MG TABLET (HOME DOSE PACK) PO ONE (20:20)
[2022-03-10 21:56] LABS: CA 125 23.5 U/ML (<30.2)
== END 2022-03-10 20:20 | disposition home or self-care (01) ==
LOC: M ED 15:22
DX: N95.0 Postmenopausal bleeding (principal); R93.5 Abnormal findings on diagnostic imaging of other abdominal regions, including retroperitoneum; I10 Essential (primary) hypertension; J45.909 Unspecified asthma, uncomplicated; E78.5 Hyperlipidemia, unspecified; Z86.79 Personal history of other diseases of the circulatory system; Z87.42 Personal history of other diseases of the female genital tract; Z91.030 Bee allergy status; Z79.51 Long term (current) use of inhaled steroids; Z79.811 Long term (current) use of aromatase inhibitors; Z79.899 Other long term (current) drug therapy
CPT/HCPCS: 74177; 76830; 76856; 80047; 80076; 85027; 85610; 85730; 86304; 96374; 96375; 99284; J1885; J2405; Q9967

== ENCOUNTER → 2022-03-15 | Outpatient (REF) | payer OTHER ==
[~2022-03-15] MED LIST changes: +BUDE10.22; +CARV3.12; +GABA-1171; +HYDR-3713 PO; +OMEP40CA5; +TIZA10TA; +TRAM50TA2
== END ==
LOC: M SFHCWAGY 15:22
PROVIDERS: ATTEND Advanced Practice Midwife
DX: N95.0 Postmenopausal bleeding (principal)

== ENCOUNTER → 2022-05-31 | Outpatient (CLI) | payer OTHER | LOC: M RAD 12:39 | PROVIDERS: ATTEND Physician Assistant | DX: Z12.2 Encounter for screening for malignant neoplasm of respiratory organs (principal); F17.210 Nicotine dependence, cigarettes, uncomplicated ==

== ENCOUNTER → 2022-08-06 | Outpatient (REF) | payer OTHER ==
[2022-08-06 17:16] LABS: THYROID STIMULATING HORMONE 2.095 uIU/ML (0.55-4.78)
[2022-08-06 17:18] LABS: ALBUMIN 3.8 G/DL (3.2-5.2); ALKALINE PHOSPHATASE 51 U/L (46-116); ALT/SGPT 24 U/L (7.0-40); AST/SGOT 18 U/L (<34); BILIRUBIN,TOTAL 0.4 MG/DL (0.3-1.2); BLOOD UREA NITROGEN 11 MG/DL (9-23); CALCIUM LEVEL 9.4 MG/DL (8.5-10.1); CARBON DIOXIDE LEVEL 32 MMOL/L (20-31); CHLORIDE LEVEL 104 MMOL/L (98-107); GLOMERULAR FILTRATION RATE > 60.0 (>51); GLUCOSE, FASTING 97 MG/DL (60-100); POTASSIUM SERUM 4.7 MMOL/L (3.5-5.1); SODIUM LEVEL 139 MMOL/L (136-145); TOTAL PROTEIN 7.1 G/DL (5.7-8.2)
[2022-08-06 17:26] LABS: BASO # 0.1 10^3/uL (0.0-0.2); BASO % 0.8 % (0.0-1.0); EOS # 0.2 10^3/uL (0.0-0.5); EOS % 2.4 % (0.0-3.0); HEMOGLOBIN 12.6 g/dl (12.0-15.5); LYMPH # 1.9 10^3/uL (1.5-5.0); LYMPH % 28.5 % (24.0-44.0); MEAN CORPUSCULAR HEMOGLOBIN 27.6 pg (27.0-33.0); MEAN CORPUSCULAR VOLUME 91.9 fl (80.0-96.0); MONO # 0.6 10^3/uL (0.0-0.8); MONO % 8.7 % (2.0-8.0); NEUTROPHILS # 3.9 10^3/uL (1.5-8.5); NEUTROPHILS % 59.1 % (36.0-66.0); PLATELET COUNT, AUTOMATED 288 10^3/uL (150-450); RED BLOOD COUNT 4.57 10^6/uL (4.00-5.40); WHITE BLOOD COUNT 6.7 10^3/uL (4.0-10.0)
[2022-08-06 17:31] LABS: MONO REFLEX EBV COMP NEGATIVE (NEGATIVE)
[2022-08-06 17:45] LABS: ERYTHROCYTE SEDIMENTATION RATE 47 mm/hr (0-30)
[2022-08-10 23:09] LABS: EBV AB TO NUCLEAR ANTIGEN 72.6 U/mL (0.0-17.9); EBV VIRAL CAPSID AG IgG >600.0 U/mL (0.0-17.9); EBV VIRAL CAPSID AG IgM <36.0 U/mL (0.0-35.9); MUMPS VIRUS IgG ANTIBODY 12.6 AU/mL (Immune >10.9); MUMPS VIRUS IgM ANTIBODY 1.12 AU (0.00-0.79)
== END ==
LOC: M SFHCCLAY 11:27
PROVIDERS: ATTEND Physician Assistant
DX: R59.9 Enlarged lymph nodes, unspecified (principal)

== ENCOUNTER → 2022-08-30 | Outpatient (CLI) | payer OTHER ==
[~2022-08-30] MED LIST changes: +ALBU90AE IH; -BUDE10.22; +BUDE10.22 INH; -CARV3.12; +CARV3.12 PO; -GABA-1171; +GABA600T4 PO; +NYSTOI TOP; -OMEP40CA5; +OMEP40CA5 PO; -TIZA10TA; +TIZA10TA PO; -TRAM50TA2
== END ==
LOC: M LABSMTC 12:21
PROVIDERS: ATTEND Anesthesiology
DX: Z01.812 Encounter for preprocedural laboratory examination (principal)

== ENCOUNTER → 2023-09-12 | Outpatient (REF) | payer OTHER ==
[~2023-09-12] MED LIST changes: +LIDO15SO9 SSP; -LIDO2SO SSP; +NYST100085 TOP; -NYSTOI TOP
[2023-09-16 00:07] LABS: Opiates Negative (Cutoff=200)
== END ==
LOC: M SFHCCLAY 16:33
PROVIDERS: ATTEND Family Medicine
DX: F51.01 Primary insomnia (principal); M54.50 Low back pain, unspecified